=== PATIENT | female | born 1950 | race Caucasian/White ===

== ENCOUNTER → 2018-03-07 13:16 | Outpatient (CLI) | payer MEDICARE, SELFPAY ==
--- NOTE | 2018-03-07 13:18 | RAD_ITS ---
STUDY: X-RAY - RIGHT SHOULDER REASON FOR EXAM: Female, 68 years old. PAIN-shoulder TECHNIQUE: 3 view(s) of the shoulder. COMPARISON: None. FINDINGS: Normal glenohumeral articulation. There is degenerative arthrosis of the acromioclavicular joint without inferior osseous spur formation. Normal acromion. Evidence for prior rotator cuff repair. Normal humeral head and visualized proximal humerus. The soft tissue structures are unremarkable. Normal visualized pulmonary apex. RAD/Shoulder min 2 Views IMPRESSION: There is degenerative arthrosis of the acromioclavicular joint without inferior osseous spur formation. Electronically Signed: Marco A Lamas MD at 20:27 EDT , Service support ,
== END ==
PROVIDERS: Family Provider Family Medicine; PCP Family Medicine; Visit Provider Family Medicine
DX: M25.511 Pain in right shoulder (principal)
CPT/HCPCS: 73030

== ENCOUNTER → 2018-09-30 10:09 | Outpatient (CLI) | payer MEDICARE, SELFPAY ==
--- NOTE | 2018-09-30 10:12 | BI_ITS ---
MAMMOGRAPHY - BILATERAL SCREENING REASON FOR EXAM: Female, 68 years old. Routine annual screening examination. PERTINENT HISTORY: Non-contributory. TECHNIQUE: Digital bilateral breast rosenda (3D mammographic acquisition) in the CC and MLO projections. 2-D mediolateral oblique (MLO) and craniocaudad (CC) views of both breasts were obtained. CAD: Full Field Digital Mammography with Computer Added Detection was performed. COMPARISON: Comparison is made with prior study dated October 18, 2016. FINDINGS: Breast Composition: There are scattered areas of fibroglandular density. There are no dominant masses or suspicious calcifications. Stable small bilateral axillary lymph nodes. No other significant abnormalities are identified. There has been no significant change since the prior study. BI/SCREENING MAMM (CAD), BILAT IMPRESSION: Stable bilateral screening mammogram. Yearly follow-up mammogram recommended. (A) ASSESSMENT CATEGORY: BIRADS Category 2: Benign. A letter regarding these results will be sent to the patient by the facility within 30 days. Approximately 10% of breast cancers are not detected by mammography. A normal mammogram should not delay biopsy of a clinically suspicious abnormality. [id number] Electronically Signed: Javon Snow, at 12:50 EDT , Service support ,
== END ==
PROVIDERS: Family Provider Family Medicine; PCP Family Medicine; Referring Provider Family Medicine; Visit Provider Family Medicine
DX: Z12.31 Encounter for screening mammogram for malignant neoplasm of breast (principal)
CPT/HCPCS: 77063; 77067

== ENCOUNTER → 2019-03-31 12:48 | Outpatient (CLI) | payer MEDICARE, SELFPAY ==
--- NOTE | 2019-03-31 12:51 | CT_ITS ---
STUDY: CT MAXILLOFACIAL SINUSES REASON FOR EXAM: Female, 69 years old. Sinusitis RADIATION DOSAGE (If Supplied By Facility): CTDIvol = ( 33.06 ) mGy, DLP = ( 871.04 ) mGycm TECHNIQUE: The patient was scanned in a multi detector CT scanner. High resolution axial imaging was performed without the administration of intravenous contrast material. Sagittal and coronal images were reconstructed. Individualized dose optimization techniques were used for this CT. COMPARISON: None. FINDINGS: FRONTAL SINUSES: Normal aeration, without mucosal inflammatory disease. ETHMOIDAL SINUSES: There is minimal mucosal thickening of ethmoid sinuses. MAXILLARY SINUSES: Normal aeration, without mucosal inflammatory disease. SPHENOIDAL SINUSES: There is trace mucosal thickening in the left sphenoid sinus with a small mucosal retention cysts. There is patency of the bilateral maxillary infundibuli with normal uncinate processes, ethmoid bullae, and hiatus semilunaris. Normal bilateral middle turbinates. Normal bilateral inferior turbinates. There is a minimal leftward spur. There is patency of the bilateral nasal airways. There is an inhomogeneous appearance of the left side temporal squamous bone. This may represent osteopenia versus etiologies such as fibrous dysplasia or potentially underlying metastatic disease. See image #92 coronal views. The visualized bilateral orbital contents are normal. There is atherosclerotic calcifications of the bilateral carotid arteries. CT/Sinus/Facial Bone IMPRESSION: Minimal sinusitis. Question possible bony metabolic process involving the squamous temporal bone on the left and the left side sphenoid wing. Consider osteopenia possible fibrous dysplasia or potentially underlying metastatic disease. Recommend consideration for follow-up MRI and/or potentially a bone scan. Electronically Signed: Aide Reyez MD at 16:58 EDT Tel , Service support ,
== END ==
PROVIDERS: Family Provider Family Medicine; PCP Family Medicine; Referring Provider Otolaryngology; Visit Provider Otolaryngology
DX: J34.89 Other specified disorders of nose and nasal sinuses (principal)
CPT/HCPCS: 70486

== ENCOUNTER → 2019-04-06 11:14 | Outpatient (CLI) | payer MEDICARE, SELFPAY ==
[2019-04-06 12:37] LABS: Absolute Lymphocyte Count 2.38 X10^3/uL (0.83-4.51); Absolute Neutrophil Count 3.7 X10^3/uL (2.0-7.7); Basophil# 0.04 X10^3/uL; Basophil% 0.6 % (0-1); Eosinophil# 0.16 X10^3/uL; Eosinophils% 2.3 % (0-5); Hematocrit 45.1 % (37-47); Hemoglobin 14.9 g/dL (12.0-15.0); Lymphocyte # 2.38 X10^3/ul (4.0); Lymphocyte % 34.4 % (19-41); Mean Platelet Vol. 10.8 fl (6.2-12.0); Monocyte% 8.7 % (0-10); NRBC Flagged by Analyzer 0 % (0-5); Neutrophil % 53.6 % (47-70); Platelet Count 256 K/mm3 (150-450); RBC Distribution Width CV 13.1 % (11.6-14.6); RBC Distribution Width SD 44.9 fl (35.1-43.9); White Blood Count 6.9 K/mm3 (4.4-11.0)
[2019-04-06 12:55] LABS: Alkaline Phosphatase 79 U/L (45-117); Anion Gap 7 (5-15); BUN 19 mg/dL (7-18); Calcium,Total 9.6 mg/dL (8.5-10.1); Chloride 106 mmol/L (98-107); Creatinine, Serum 0.79 mg/dL (0.55-1.02); EST Glomerular Filtration Rate 76 mL/min (>60); Est Glom Filt Rate - Afr Amer 92 mL/min (>60); Glucose 97 mg/dL (74-106); Sodium Level 142 mmol/L (136-145)
== END ==
PROVIDERS: Family Provider Family Medicine; PCP Family Medicine; Referring Provider Otolaryngology; Visit Provider Otolaryngology
DX: R93.0 Abnormal findings on diagnostic imaging of skull and head, not elsewhere classified (principal)
CPT/HCPCS: 36415; 80048; 84075; 85025

== ENCOUNTER → 2019-04-17 13:10 | Outpatient (CLI) | payer MEDICARE, SELFPAY ==
--- NOTE | 2019-04-17 13:45 | MRI_ITS ---
STUDY: MRI BRAIN WITH AND WITHOUT CONTRAST REASON FOR EXAM: Female, 69 years old. Sinusitis TECHNIQUE: Standardized multiplanar fat and water weighted pulse sequences were obtained. IV Dotarem 15 was administered for the contrast portion of the examination. COMPARISON: 03/31/2019 FINDINGS: Normal size of the ventricles and extra-axial spaces for the patient's age. Normal white matter tracts of the supratentorial brain. There is no evidence for recent intracranial ischemia or other cause of cytotoxic edema on diffusion weighted imaging (DWI). Normal bilateral basal ganglia. Normal thalami. There is no extra-axial fluid accumulation. Normal flow voids within the major intracranial circulation suggesting patency by spin echo criteria. Normal venous enhancement. There is no enhancing intra-axial or extra-axial abnormality. Normal sella turcica, pituitary gland, infundibular stalk, optic chiasm and hypothalamus. Normal tectal plate and pineal gland. Normal midbrain, emani and medulla. Normal cerebellum. Normal basal cisterns. Normal bilateral temporal bones. Normal bilateral internal auditory canals. There are bilateral ocular lens implants with otherwise normal intraorbital contents. Normal visualized paranasal sinuses. Normal calvarium and skull base. No obvious abnormality corresponding to the lytic area seen on CT. Normal visualized soft tissue structures. Normal visualized upper cervical spine. MRI/Brain W/WO Contrast IMPRESSION: Normal unenhanced and enhanced MRI of the brain. Electronically Signed: Demian Dickson MD at 15:09 EDT Tel , Service support ,
== END ==
PROVIDERS: Family Provider Family Medicine; PCP Family Medicine; Referring Provider Otolaryngology; Visit Provider Otolaryngology
DX: R93.0 Abnormal findings on diagnostic imaging of skull and head, not elsewhere classified (principal)
CPT/HCPCS: 70553; A9575

== ENCOUNTER 2021-01-12 10:50 | Day surgery (SDC) | payer MEDICARE, SELFPAY ==
[2021-01-12] VITALS (7 sets, daily range): BP systolic 108–140; BP diastolic 60–80; PULSE 55–58; RESP 12–16; TEMP 36.4–36.9; O2SAT 95–99; BMI 23.5
[2021-01-12] MEDS: Lactated Ringers 1,000 ML 100 ML IV (11:47)
--- NOTE | 2021-01-12 12:23 | PCM.HP.BLA ---
History and Physical Date of Admission: 01/12/21 HISTORY AND PHYSICAL ? Becky Marcos 1950 ? REFERRING PHYSICIAN: Marnie Velasquez MD ? CHIEF COMPLAINT: Consult (Colonoscopy) ? HPI: The patient is a 70 year old female referred for endoscopy. Becky notes no colon complaints. Patient denies any change in bowel habits, weight changes, blood in stools, black tarry stools or abdominal pain. Note family history of colon issues-maternal grandparent with colon cancer. Denies any first-degree relatives with colon cancer. The patient notes no upper GI complaints. ? Becky has undergone prior endoscopy. Most recent colonoscopy was done at [facility] in 2013, records not available for review. Patient states findings were normal with a 5 year repeat recommended due to family history. She notes remote history of polyp on a prior colonoscopy. ? Patient denies chest pain, shortness of breath or recent hospitalizations. Denies problems with sedation in the past. ? ? ? PAST MEDICAL HISTORY PAST MEDICAL HISTORY Diagnosis Date ? Anxiety, generalized ? ? ? PAST SURGICAL HISTORY PAST SURGICAL HISTORY Procedure Laterality Date ? COLONOSCOPY GEN ANES ? 2013 ? REPAIR ROTATOR CUFF,ACUTE Right ? ? VAGINAL HYSTERECTOMY ? CURRENT MEDICATIONS Current Outpatient Medications Medication Sig ? Lactobacillus acidophilus (PROBIOTIC) 10 billion cell cap Take by mouth. ? Bacillus coagulans (DIGESTIVE ADVANTAGE PROBIO-PRE) 400 million cell chew Take by mouth. ? Tjpxchbyndffp-Cbtgolta-Ifiuwv (MULTIVITAMIN 50 PLUS) tab Take 1 tablet by mouth once daily. ? escitalopram oxalate (ESCITALOPRAM) 5 mg tablet Take 1 tablet by mouth once daily. ? ALPRAZolam (XANAX) 0.25 mg tablet Take 0.5 tablets by mouth twice daily as needed for up to 180 days. Do not start before October 22, 2020. ? melatonin 3 mg tablet Take 5 mg by mouth. ? ? melatonin 1 mg tablet Take 1 tablet by mouth daily at bedtime. With the 3 mg dose ? No current facility-administered medications for this visit. ? ? ALLERGIES: Patient has no known allergies. ? PERSONAL HISTORY: SOCIAL HISTORY Social History ? Tobacco Use ? Smoking status: Never Smoker ? Smokeless tobacco: Never Used Vaping Use ? Vaping Use: Never used Substance Use Topics ? Alcohol use: Not on file ? ? Comment: Glass of red wine a day ? Drug use: Not on file ? FAMILY HISTORY: FAMILY HISTORY FAMILY HISTORY Problem Relation Age of Onset ? No Known Problems Mother ? ? Colon Cancer Maternal Grandfather ? ? ? REVIEW OF SYMPTOMS: The review of systems data was entered by the nurse and reviewed by me ? Nursing Notes: Elena Skinner MARK 12/27/2020 1:10 PM Signed REVIEW OF SYSTEMS: General: The patient denies fatigue, denies weight loss, denies weight gain, denies feeling hot, and denies feelings of cold. Eyes: The patient denies glaucoma, NOTES eye injury/surgery, wears glasses or contacts. Ear/Nose/Throat: The patient NOTES allergies, denies hayfever, denies ear infections, and denies bloody noses. Cardiovascular: The patient denies chest pain, denies heart disease, denies high blood pressure,denies cardiac stent, denies prior heart attack, denies irregular heart beat, denies high cholesterol, denies poor circulation, denies heart failure, other cardiac issues, denies claudication, denies cold feet, denies peripheral arterial stent. Respiratory: The patient denies tuberculosis, denies pneumonia, denies frequent cough, denies pulmonary embolism, denies shortness of breath, and denies coughing up blood. Gastrointestinal: The patient denies difficulty swallowing, denies acid reflux, denies ulcers, denies vomiting, denies jaundice/hepatitis, denies gallbladder problems, denies black or tarry stools, denies hemorrhoids, denies bleeding from rectum, denies diverticulitis, denies constipation, denies diarrhea, denies loss of stool control, and denies hernias. Kidney/Bladder: The patient denies kidney stones, denies urine infections, and denies bloody urine. Skin: The patient NOTES a history of skin cancer, denies bleeding/changing moles, and denies a history of skin rash. Neurologic: The patient denies a history of epilepsy/convulsions, denies headaches, denies head/spinal injuries, and denies stroke/TIA. Psychiatric: The patient denies psychiatric medications, NOTES depression, and denies voices, denies substance abuse. Endocrine: The patient denies thyroid disorders, denies diabetes, and denies hormonal problems. Hematologic: The patient denies a history of bruising, denies bleeding, and denies anemia, denies blood clots. Infections: The patient denies a history of measles and mumps, denies rheumatic fever, and denies sexually transmitted diseases. Musculoskeletal: The patient denies back pain/injury, denies back problems, denies sciatica, denies knee/foot trouble, denies arthritis, or denies gout. ? ? When was patient's last Mammogram screening? 09/01/2020 ? Last Colonoscopy: 2013 ? Elena Skinner LPN I have confirmed and edited as necessary, the PFSH and ROS obtained by others. Faye Strong PA-C ? PHYSICAL EXAMINATION: ? General: The patient is 70 year old female, well nourished, well hydrated in no acute distress. The patient is oriented to time, place, and person. ? VITALS: Blood pressure 122/64, pulse 73, temperature 37.2 ?C (98.9 ?F), height 168.9 cm (5' 6.5), weight 68.5 kg (151 lb), SpO2 96 %. Body mass index is 24.01 kg/m?. ? HEENT: Normal cephalic, ataumatic, pupils are equally round, sclera are anicteric, mucous membranes are moist, oropharynx is clear. Neck has no masses, asymmetry or lymphadenopathy. ? Respiratory: Clear to auscultation and percussion. Normal respiratory excursion and pattern. ? Cardiac: Examination is regular rate and rhythm. Normal S1/S2 ? Abdominal exam: Soft, nontender, with no palpable masses. No hepatosplenomegaly. No palpable hernias. ? Extremities: no clubbing, cyanosis or edema. No adenopathy. ? LABORATORY VALUES: As Noted ? RADIOLOGIC STUDIES: As Noted ? ? Assessment IMPRESSION: encounter for colonoscopy ? PLAN: I have reviewed my findings with the surgeon. Will plan for lower endoscopy. We discussed the risks and benefits of the planned endoscopy. I have informed the patient that complications can occur including failure to complete the endoscopy and perforation. The patient had the opportunity to ask questions concerning the planned endoscopy. My staff has also explained the procedure to the patient in understandable terms and has given the patient printed material concerning the procedure. The patient freely consents to surgery. ? The patient was offered a surgery/procedure at a [facility] facility. I have counseled the patient regarding the risk of exposure to and/or potential harm posed by the COVID-19 virus with having a surgery/procedure at this time versus the risk of? delaying the surgery/procedure. It is not possible to know either the risk of delaying the surgery or procedure or chance of getting an infection with perfect accuracy, but a joint decision was made between the patient and myself?to proceed at this time with endoscopy. ? ? I plan to use Golytely bowel preparation ? The patient takes prescription medications which I feel decrease the chance of successful sedation, therefore we will plan for procedure to be done under Monitored Anesthetic [facility]. ? ? ? Diagnoses: (Z12.11) Encounter for screening for malignant neoplasm of colon (primary encounter diagnosis) (Z80.0) Family history of colon cancer (Z86.010) History of colonic polyps ? I spent a total of 34 minutes on the date of the service which included preparing to see the patient, [id number] patient care, completing clinical documentation, obtaining and/or reviewing separately obtained history, performing a medically appropriate examination, counseling and educating the patient/family/caregiver, ordering medications, tests, or procedures, communicating with other HCPs (not separately reported) and care coordination (not separately reported). ? ? Faye Strong PA-C I have re-examined the patient. There are no clinical changes since date of exam.
--- NOTE | 2021-01-12 12:28 | EX.PCM.DISCH ---
Discharge Instructions Follow Up Care Test Results: Test results from this visit will be discussed in further detail at your follow-up appointment, if applicable. Discharge Plan Admission Attending Provider: Jose Gonzalez Primary Care Provider: Marnie Velasquez Discharge Orders/Prescriptions Prescriptions: No Action milk thistle 180 mg Capsule 180 mg PO DAILY RF: 0 alprazolam 0.25 mg tablet 0.125 mg PO PRN PRN (Reason: Anxiety) RF: 0 ascorbic acid (vitamin C) 250 mg Tablet 250 mg PO DAILY RF: 0 escitalopram oxalate [Lexapro] 5 mg tablet 5 mg PO DAILY RF: 0 Plexus Probiotic 1 tab PO/SL DAILY RF: 0 Referrals / Follow Up: Marnie Velasquez MD [Primary Care Provider] - Faye Strong PAEdouardC [PHYSICIAN FREELANCE DATA ENTRY] - Disposition Disposition (needs filled in before D/C Order can be placed): Home, Self Care
--- NOTE | 2021-01-15 08:48 | OP.CCLET_ITS ---
01/15/2021 Contreras Tsefaye Re : Colonoscopy procedure for Becky Acevedor Brien This procedure was performed on December. My impressions and recommendations are as follows: Impressions : - Diverticulosis in the sigmoid colon and in the descending colon. No specimens collected. - Non-bleeding internal hemorrhoids. - The examination was otherwise normal. Recommendations : - Discharge patient to home. - Resume previous diet. - Continue present medications. - Repeat colonoscopy in 5 years for surveillance. - Return to physician media assistant in 1 week. My findings are described in the full procedure note, which is enclosed. If I can be of further assistance, please feel free to contact me at Doctor phone number(s): , Fax: [phone], Work: . Sincerely, MD Jose Arriaga MD 01/15/2021 8:47:18 AM This report has been signed electronically.
--- NOTE | 2021-01-15 08:48 | OP.COLON_ITS ---
Patient Name: Becky Marcos Procedure Date: 01/12/2021 11:40 AM Date of : 1950 Age: 70 Procedure: Colonoscopy Indications: Screening in patient at increased risk: Family history of 1st-degree relative with colorectal cancer Providers: Jose Gonzalez MD Medicines: See the Anesthesia note for documentation of the administered medications Patient Profile: This is a 70 year old female. Refer to note in patient chart for documentation of history and physical. Last Colonoscopy: 2013. Complications: No immediate complications. Procedure: Pre-Anesthesia Assessment: - Prior to the procedure, a History and Physical was performed, and patient medications and allergies were reviewed. The patient's tolerance of previous anesthesia was also reviewed. The risks and benefits of the procedure and the sedation options and risks were discussed with the patient. All questions were answered, and informed consent was obtained. Prior Anticoagulants: The patient has taken no previous anticoagulant or antiplatelet agents. ASA Grade Assessment: II - A patient with mild systemic disease. After reviewing the risks and benefits, the patient was deemed in satisfactory condition to undergo the procedure. After I obtained informed consent, the scope was passed under direct vision. Throughout the procedure, the patient's blood pressure, pulse, and oxygen saturations were monitored continuously. The colonoscope was introduced through the anus and advanced to the cecum, identified by appendiceal orifice and ileocecal valve. The colonoscopy was performed without difficulty. The patient tolerated the procedure well. The quality of the bowel preparation was good. Scope In: 12:11:12 PM Scope Withdrawal Time 0 hours 6 minutes 37 seconds Scope Out: 12:22:29 PM Total Procedure Duration Time 0 hours 11 minutes 17 seconds Findings: Multiple small and large-mouthed diverticula were found in the sigmoid colon and descending colon. No biopsies or other specimens were collected for this exam. Non-bleeding internal hemorrhoids were found during retroflexion. The hemorrhoids were mild and small. The exam was otherwise without abnormality. Impression: - Diverticulosis in the sigmoid colon and in the descending colon. No specimens collected. - Non-bleeding internal hemorrhoids. - The examination was otherwise normal. Recommendation: - Discharge patient to home. - Resume previous diet. - Continue present medications. - Repeat colonoscopy in 5 years for surveillance. - Return to physician medicine assistant in 1 week. Procedure Code(s): --- Professional --- G0105, Colorectal cancer screening; colonoscopy on individual at high risk Diagnosis Code(s): --- Professional --- Z80.0, Family history of malignant neoplasm of digestive organs K64.8, Other hemorrhoids K57.30, Diverticulosis of large intestine without perforation or abscess without bleeding CPT copyright 2017 [employer]. All rights reserved. The codes documented in this report are preliminary and upon death surveys coder review may be revised to meet current compliance requirements. MD Jose Arriaga MD 01/15/2021 8:47:18 AM This report has been signed electronically. Number of Addenda: 0 Note Initiated On: 01/12/2021 11:40 AM
== END 2021-01-12 13:31 | disposition home or self-care (01) ==
LOC: EN 10:53 → AC 10:54
PROVIDERS: PCP Internal Medicine; Referring Provider Internal Medicine; Visit Provider Surgery
PROC: 0DJD8ZZ Inspection of Lower Intestinal Tract, Via Natural or Artificial Opening Endoscopic (ICD-10-PCS; CPT 45378; principal; 2021-01-12 11:55)
DX: Z12.11 Encounter for screening for malignant neoplasm of colon (principal); K64.8 Other hemorrhoids; K57.30 Diverticulosis of large intestine without perforation or abscess without bleeding; Z80.0 Family history of malignant neoplasm of digestive organs; F41.1 Generalized anxiety disorder; Z86.010 Personal history of colon polyps
CPT/HCPCS: G0105; J7120

== ENCOUNTER → 2021-06-14 09:51 | Outpatient (CLI) | payer MEDICARE, SELFPAY ==
--- NOTE | 2021-06-14 12:47 | NEURO ---
NCS and/or EMG Patient Report Ordering Doctor: Kayode Anderson DATE OF SERVICE: 06/14/21 Becky presents for electrodiagnostic testing of the right upper limb she reports cramping in the right forearm intermittent numbness in the hand. Electrodiagnostic findings: Right median motor nerve demonstrates normal distal latency, amplitude and conduction velocity. Normal right ulnar motor response normal median ulnar F waves. Sensory responses are within normal limits. On needle EMG, all muscles tested in the right upper limb as well as the right cervical paraspinal showed no evidence of denervation with normal motor unit action potentials Electrodiagnostic assessment: This is a normal electrodiagnostic study of the right upper limb. There is no electrodiagnostic evidence for peripheral neuropathy, including carpal tunnel syndrome. There is no electrodiagnostic evidence for cervical radiculopathy.
== END ==
PROVIDERS: PCP Internal Medicine; Referring Provider Student in an Organized Health Care Education/Training Program; Visit Provider Student in an Organized Health Care Education/Training Program
DX: R20.2 Paresthesia of skin (principal)
CPT/HCPCS: 95886; 95910

== ENCOUNTER → 2022-03-02 | Outpatient (CLI) | payer MEDICARE, SELFPAY ==
--- NOTE | 2022-03-02 11:43 | BI_ITS ---
MAMMOGRAPHY - BILATERAL SCREENING REASON FOR EXAM: Female, 72 years old. Routine annual screening examination. PERTINENT HISTORY: Non-contributory. TECHNIQUE: Digital bilateral breast esteban (3D mammographic acquisition) in the CC and MLO projections. 2-D mediolateral oblique (MLO) and craniocaudad (CC) views of both breasts were obtained. CAD: Full Field Digital Mammography with Computer Added Detection was performed. COMPARISON: Comparison is made with prior study dated 09/30/2018 and 10/18/2016. FINDINGS: Breast Composition: There are scattered areas of fibroglandular density. There are no dominant masses or suspicious calcifications. Stable small bilateral benign-appearing axillary nodes. No other significant abnormalities are identified. There has been no significant change since the prior study. BI/SCRN MAMM (CAD)W/ESTEBAN BILAT IMPRESSION: Stable bilateral screening mammogram. Yearly follow-up mammogram recommended. (A) ASSESSMENT CATEGORY: BIRADS Category 2: Benign. A letter regarding these results will be sent to the patient by the facility within 30 days. Approximately 10% of breast cancers are not detected by mammography. A normal mammogram should not delay biopsy of a clinically suspicious abnormality. [id number] Electronically Signed: Javon Snow MD at 12:39 EDT ,
== END | disposition home or self-care (01) ==
LOC: OPBI 11:41
PROVIDERS: PCP Internal Medicine; Visit Provider Clinical Nurse Specialist
DX: Z12.31 Encounter for screening mammogram for malignant neoplasm of breast (principal)
CPT/HCPCS: 77063; 77067

== ENCOUNTER 2022-09-14 12:00 | Outpatient (RCR) | payer MEDICARE, SELFPAY ==
--- NOTE | 2022-06-13 10:52 | HP.PTEVAL_ITS ---
Patient's Visit Information KASHIF GUTIÉRREZ is a 72 year old F referred to Physical Therapy by JOEY CARVALHO with a diagnosis of s/p R reverse TSA DOS 06/04/22. Date of Evaluation: 06/13/22 Physical Therapist: Regan Jensen, DPT, OCS, CSCS - Visit Plan Frequency: 1-2x /Week Duration: 3 Months Plan: 1-2x/week for up to 12 weeks. start with PROM to AAROM in June and progress as tolerated, no active biceps allowed until end june. Start rotations josephine and stick next session and elevation and progress HEP. ice as needed. Progress to deltoid iso and scap strength by mid June. - Subjective Had a R reverse TSA surgery last Saturday on 06/[address] Benavides at [facility]. Had previous trouble in shoulder having RC surgery 23 yrs ago. 3 yrs ago . Has had pain again in R shoulder and need reverse TSA. 3 opinions recommended TSA. Was in pain up to 7/10 incrementally worsening and movement getting worse. It got sharp with activity. Since surgery has stayed ahead of pain. first 3 days were bad and then slowly better. Now is taking percoset every 12 hours and 2 tylenol every 12 hours. pain stays at 0-1 until she overdoes it to 4/10, ice helps. No sling since first day. Holds arm in at body. No exercises. Avoids all activity with R UE. Sleep is 2 hour increments in chair. Walks a little bit and gets back to sleep. Is a . 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 Hobbies including walking and is not currently doing that. Wants to get on elliptical at home. On a fixed income and wants to minimize visits. - Pain R pain Pain Intensity (Out of 10): 1 Pain Intensity Range: 0, 5 - Objective walks slowly but safely and I back to PT with R elbow held in flexion. Transfers supine and sit I. Full cervical AROM without pain. Slow but good scapular AROM slightly limited R retraction, no pain. elbow and wrist AROM WFL, elbow flexion was PROM despite patient holding it in flexion, doctor told her she did not need the sling. bruising present in lower R arm but patient says it is improving, functional hand and finger ROM. reflexes 2/3 bi and tri B. Incision dressed and doctor to remove at f/u. Sensation WNL to gross light touch in UE. strength of wrist and triceps 3+ B and symmetircal, biceps R not tested, shoulder not tested today for strength. PROM shoulder flexion 93, abduction 90 and ext rotation 30 today with limitations due to patient self limiting with discomfort. - Balance/Special Test Scores Quick DASH Score: 100.0000 - Goals Goal 1:: ST: PROM 130 elevation and 45 ext rotation to help with funciton Goal Time Frame: 2-4 Weeks Goal 2:: Sleep 4 hours without waking Goal Time Frame: 2-4 Weeks Goal 3:: Patient feel 80% back to normal function and pain 1/10 at worst Goal Time Frame: 8-12 Weeks Goal 4:: quick dash score 16 or better Goal Time Frame: 8-12 Weeks Goal 5:: I management of condition for progress Goal Time Frame: 8-12 Weeks - Rehabilitation Potential Physical Therapy Diagnosis: stiffness, weakness pain after recent surgery Rehabilitation Potential: Good - Anticipated Interventions Patient/Client Instruction: Educate patient on: Condition, Plan of Care For the Purpose of:: To decrease pain, To increase ROM, To improve nutrient delivery to tissue, To improve muscle performance and motor function, To increase tolerance to activity/condition/position, To improve ability of physical actions for home/community/work/leisure Therapeutic Exercise to Include: Strength training, Postural training, Passive ROM, Active ROM, Scapular Strength/Stabilization For the Purpose of:: To decrease pain, To increase ROM, To improve nutrient delivery to tissue, To increase oxygenation perfusion, To increase tolerance to activity/condition/position, To improve performance and independence with ADL's, To improve ability of physical actions for home/community/work/leisure Manual Therapy Techniques to Include: Scar massage, Passive ROM, Soft tissue mobilization For the Purpose of:: To decrease pain, To increase ROM Cryotherapy (ice pack, ice massage): Yes For the Purpose of:: To decrease pain, To decrease swelling/inflammation Thank you for the opportunity to evaluate your patient. For Medicare and Medicare HMO plans, please review the plan of care and approve it. It will need to be FAXED BACK to us at [phone] for Medicare purposes. For Medicare only, by signing this I certify the plan of care. Please let me know if there are questions or concerns regarding this plan of care. Physician Signature: Date:
--- NOTE | 2022-08-01 09:07 | HP.PTREVAL ---
JOEY CARVALHO, It has been my pleasure to treat KASHIF GUTIÉRREZ over the last 7 visits for s/p R reverse TSA DOS 06/04/22. Please see the progress note below for an update on the physical therapy plan of care! Subjective: I am enjoying my new found freedom. Driving without issues and can sleep on right side. Feels like things are going very well. ROM is still limited. Pain in last week is not bad, up to 3/10 only with exercises. Takes tylenol at times. 1/10 at other times. Sleeping well. 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 Still avoids elliptical as she is afraid. Dressing is good. using L hand alot. Objective/Function: arom TO 103 ELEVATION AND 55 EX ROTATION AND psis ir BARELY. [id number] IS WEAK IN EXT ROTATIONA DN ELEVATION. Pain is as expected. Function improving slolwy Plan Plan: More agressive with elevation strength for AROM, continue weekly x 4 weeks Balance/Gait/Functional tests - Balance/Special Test Scores Quick DASH Score: 38.6350 Goals Goal 1:: ST: PROM 130 elevation and 45 ext rotation to help with funciton Goal Time Frame: 2-4 Weeks Goal Progress: Goal Met Goal 2:: Sleep 4 hours without waking Goal Time Frame: 2-4 Weeks Goal Progress: Goal Met Goal 3:: Patient feel 80% back to normal function and pain 1/10 at worst Goal Time Frame: 8-12 Weeks Goal Progress: 85% Goal 4:: quick dash score 16 or better Goal Time Frame: 8-12 Weeks Goal Progress: Progressing Goal 5:: I management of condition for progress Goal Time Frame: 8-12 Weeks Goal Progress: Progressing Anticipated Interventions Patient/Client Instruction: Educate patient on: Condition, Plan of Care For the Purpose of:: To decrease pain, To increase ROM, To improve nutrient delivery to tissue, To improve muscle performance and motor function, To increase tolerance to activity/condition/position, To improve ability of physical actions for home/community/work/leisure Therapeutic Exercise to Include: Strength training, Postural training, Passive ROM, Active ROM, Scapular Strength/Stabilization For the Purpose of:: To decrease pain, To increase ROM, To improve nutrient delivery to tissue, To increase oxygenation perfusion, To increase tolerance to activity/condition/position, To improve performance and independence with ADL's, To improve ability of physical actions for home/community/work/leisure Manual Therapy Techniques to Include: Scar massage, Passive ROM, Soft tissue mobilization For the Purpose of:: To decrease pain, To increase ROM Cryotherapy (ice pack, ice massage): Yes For the Purpose of:: To decrease pain, To decrease swelling/inflammation Please do not hesitate to contact me at [phone] by phone or if you have questions or concerns regarding this new plan of care! Sincerely, Regan Jensen, DPT, OCS, CSCS
--- NOTE | 2022-09-14 12:39 | HP.PTDCSUM ---
It has been my pleasure to treat KASHIF GUTIÉRREZ referred by JOEY CARVALHO, with the diagnosis of s/p R reverse TSA DOS 06/04/22 for a total of 11 visit(s). Discharge Date: 09/14/22 Please see the following information for a summary of their discharge status. Subjective: No pain, life close to normal, sleeping well. Still plans on joining once released and continuing I. R pain Pain Intensity (Out of 10): 0 % Improvement: 95 Objective/Function: Some minor VC needed with exercise machines but ready to try on her own. 130 flexion and 45 er in shoulder. Moving well and only slight discomfort with extension transiently. Donning and doffing coat I easily. strength 4-/5 elevation and 4- in ext rotation and 4 IR.R shoulder. Goal 1:: ST: PROM 130 elevation and 45 ext rotation to help with funciton Goal Progress: Goal Met Goal 2:: Sleep 4 hours without waking Goal Progress: Goal Met Goal 3:: Patient feel 80% back to normal function and pain 1/10 at worst Goal Progress: 95 Goal 4:: quick dash score 16 or better Goal Progress: Progressing Goal 5:: I management of condition for progress Goal Progress: Goal Met Plan: d/c to gym ex If there are questions or concerns regarding this patient's physical therapy, please feel free to call me at [phone]. Thank you for the referral of this patient. Sincerely, Regan Jensen, DPT, OCS, CSCS Balance/Gait/Functional tests - Balance/Special Test Scores Quick DASH Score: 38.6350
== END 2022-09-14 19:00 | disposition home or self-care (01) ==
LOC: PT 12:00
PROVIDERS: PCP Internal Medicine
DX: M75.101 Unspecified rotator cuff tear or rupture of right shoulder, not specified as traumatic (principal); M12.811 Other specific arthropathies, not elsewhere classified, right shoulder
CPT/HCPCS: 97110; 97140; 97161; 97530